=== PATIENT | male | born 1970 ===

== ENCOUNTER 2018-09-08 08:17 | Day surgery (SDC) | payer BC ==
[2018-09-08] VITALS (8 sets, daily range): BP systolic 99–108; BP diastolic 58–76
[~2018-09-08] VITALS: Ht 182.9 cm; Wt 99.8 kg
[~2018-09-08 08:17] MED LIST: LR 1000ml 1,000 ML IVLG SCH
[2018-09-08] MEDS ORDERED: ALLOPURINOL100 M1 ORAL (08:54)
[2018-09-08] MEDS ORDERED: Propofol 200mg/20ml IV ONE (10:00)
[2018-09-08] MEDS ORDERED: LR 1000ml ONE (10:00)
[2018-09-08] MEDS ORDERED: Lidocaine 1% MPF 10mg/ml 5ml ONE (10:00)
--- NOTE | 2018-09-08 10:12 | Short Stay Surgery H&P ---
History of Present Illness History of Present Illness Chief Complaint see H&P HPI Kris Muñoz is a 47 year old male who was admitted on for Rule Out Gg Fistula Patient History Allergies: Coded Allergies: No Known Allergies (Unverified , 09/08/18) Medication History Scheduled Allopurinol* (Allopurinol*), 100 MG ORAL DAILY, (Reported) Physical Exam Vital Signs Last Vital Signs Date Time Temp Pulse Resp B/P (MAP) Pulse Ox O2 Delivery O2 Flow Rate FiO2 09/08/18 08:52 Room Air 09/08/18 08:50 97.9 67 18 106/64 98 Plan Attestation Are the patient's medical conditions optimized for surgery? Enzo Fregoso MD Sep 08, 2018 10:12
--- NOTE | 2018-09-08 10:12 | Pre-Procedure Note/Attestation ---
Pre-Procedure Note/Attestation Complete Prior to Procedure Planned Procedure: not applicable Procedure Narrative: egd Indications for Procedure Pre-Operative Diagnosis: gerd Attestation I attest that I discussed the nature of the procedure; its benefits; risks and complications; and alternatives (and the risks and benefits of such alternatives ), prior to the procedure, with the patient (or the patient's legal construction representative). I attest that, if there was a reasonable possibility of needing a blood transfusion, the patient (or the patient's legal construction representative) was given the [facility] standardized written summary, pursuant to the [place] Blood Safety Act ([place] Health and Safety Code # 1645, as amended). I attest that I re-evaluated the patient just prior to the surgery and that there has been no change in the patient's H&P, except as documented below: Enzo Fregoso MD Sep 08, 2018 10:12
[2018-09-08] MEDS ORDERED: LR 1000ml 1,000 ML IVLG SCH (11:25)
--- NOTE | 2018-09-08 11:28 | Anethesia Preoperative Eval ---
Anesthesia Pre-op PMH/ROS General Date of Evaluation: Sep 08, 2018 Time of Evaluation: 09:45 Anesthesiologist: vilma ASA Score: ASA 2 Mallampati Score Class I : Soft palate, uvula, fauces, pillars visible Class II: Soft palate, uvula, fauces visible Class III: Soft palate, base of uvula visible Class IV: Only hard plate visible Mallampati Classification: Class II Surgeon: giovany Diagnosis: gerd Surgical Procedure: egd Anesthesia History: none Social History: smoking - nonsmoker Family History: no anesthesia problems Allergies: Coded Allergies: No Known Allergies (Unverified , 09/08/18) Medications: see eMAR Patient NPO?: Yes Past Medical History Musculoskeletal/Integumentary: Reports: other - gout PSxH Narrative: bariatric bypass Anesthesia Pre-op Phys. Exam Physician Exam Last Vital Signs Date Time Temp Pulse Resp B/P (MAP) Pulse Ox O2 Delivery O2 Flow Rate FiO2 09/08/18 10:55 98.0 78 20 106/73 97 Room Air 09/08/18 10:40 3 Constitutional: NAD Neurologic: CN 2-12 intact Cardiovascular: RRR Respiratory: CTA Gastrointestinal: S/NT/ND Airway Exam Mallampati Score: Class II MO: full Neck: flexible TMD: 2fb ROM: full Anesthesia Pre-op A/P Risk Assessment & Plan Assessment: asa2 Plan: mac Status Change Before Surgery: No Pre-Antibiotics Drug: Gaby Cornell MD Sep 08, 2018 11:28
[2018-09-08] MEDS ORDERED: Midazolam 2mg/2ml Inj IVP PRN (11:30)
[2018-09-08] MEDS ORDERED: DiphenhydrAMINE 50mg/ml Inj IVP PRN (11:30)
[2018-09-08] MEDS ORDERED: fentaNYL 100 mcg/2 mL IV PRN (11:30)
[2018-09-08] MEDS ORDERED: Atropine Inj 1mg/10ml Syr IV PRN (11:30)
--- NOTE | 2018-09-08 11:30 | 48 Hour Post Anesthesia Eval ---
Post Anesthesia Evaluation Procedure: egd w/bx Date of Evaluation: Sep 08, 2018 Time of Evaluation: 10:52 Blood Pressure Systolic: 105 0: 72 Pulse Rate: 77 Respiratory Rate: 18 Temperature (Fahrenheit): 98.4 O2 Sat by Pulse Oximetry: 100 Airway: patent Nausea: No Vomiting: No Pain Intensity: 0 Hydration Status: adequate Cardiopulmonary Status: stable Mental Status/LOC: patient returned to baseline Post-Anesthesia Complications: none Follow-up care needed: N/A Gaby Barnes MD Sep 08, 2018 11:30
--- NOTE | 2018-09-08 11:30 | Immediate Post-Op Evaluation ---
Immediate Post-Op Evalulation Immediate Post-Op Evalulation Procedure: egd w/bx Date of Evaluation: Sep 08, 2018 Time of Evaluation: 10:50 IV Fluids: 450ml lr Blood Products: none Estimated Blood Loss: neglgible Blood Pressure Systolic: 99 Blood Pressure Diastolic: 58 Pulse Rate: 77 Respiratory Rate: 18 O2 Sat by Pulse Oximetry: 100 Temperature (Fahrenheit): 98.4 Pain Score (1-10): 0 Nausea: No Vomiting: No Complications none Patient Status: awake, reacts, patent Hydration Status: adequate Drug: Gaby Cornell MD Sep 08, 2018 11:30
--- NOTE | 2018-09-08 16:15 | Procedure Note ---
DATE OF PROCEDURE: 09/08/2018 PROCEDURE: Upper gastrointestinal endoscopy as well as enteroscopy with biopsy. SURGEON: Enzo Fregoso M.D. ANESTHESIA: Please see the separate anesthesiologist notes for details. PRE-ENDOSCOPIC DIAGNOSIS: persistent gastroesophageal reflux disease in a gastric bypass patient. POST-ENDOSCOPIC DIAGNOSIS: 1. Status post Torsten-en-Y gastric bypass surgery as expected with pouch size approximately 5 to 6 cm. 2. No evidence of ulcers or fistulas were identified in this study. 3. There was a hiatal hernia at the midportion of the gastric pouch such that half the pouch was below the hernia and other half was above the hernia. 4. Status post random biopsies of the gastric pouch, lower esophagus and mid esophagus. DESCRIPTION OF PROCEDURE: The procedure, its risks, indications, alternatives, and possible complications including, but not limited to bleeding, infection, perforation were explained to the patient and informed consent was obtained. The diagnostic upper endoscope was then introduced into oropharynx and advanced to the jejunum. The endoscope was then gradually withdrawn and mucosa examined carefully. Examination of the upper gastrointestinal mucosa revealed the Torsten-en-Y gastric bypass anatomy and both the afferent blind limb and efferent limb were examined. Findings are as listed above. The endoscope was removed. The patient was sent to recovery in good condition. COMPLICATIONS: None. RECOMMENDATIONS: 1. Follow up biopsy results. 2. Check and treat Helicobacter pylori if positive. 3. Trial of Zantac 300 mg p.o. at bedtime. 4. Outpatient followup. Enzo Fregoso M.D. DR: Renea JOB#: [id number] CC: Enzo Fregoso M.D.; Fax#: [phone]
--- NOTE | 2018-09-09 11:09 | Endoscopy Procedure Note ---
Endoscopy Procedure Note General Indication for Procedure: MARCE Procedures Performed: EGD Operative Findings/Diagnosis: GILMA, ALEJANDRA Specimen: yes Pt Tolerated Procedure Well: Yes Estimated Blood Loss: minimal Anesthesia Anesthesiologist: See report Anesthesia: MAC Inserted Devices Implant(s) used?: No GI Core Measures 50 yrs or older w/o bx or poly: Not Applicable 10yrs. F/U recommended: Not Applicable If not recommended, why?: Enzo Fregoso MD Sep 09, 2018 11:09
--- NOTE | 2018-09-09 11:10 | Brief Operative Note ---
Immediate Post Operative Note Operative Note Chief Complaint: MARCE Pre-op Diagnosis: gerd Procedure: EGD Post-op Diagnosis: ALEJANDRA DILLARD Surgeon: giovany Specimen: yes Complications: none Condition: stable Fluids: recorded Implant(s) used?: No nEzo Fregoso MD Sep 09, 2018 11:10
== END 2018-09-08 11:30 | disposition home or self-care (01) ==
LOC: GAS 08:17
DX: K21.9 Gastro-esophageal reflux disease without esophagitis (principal); Z98.84 Bariatric surgery status; K44.9 Diaphragmatic hernia without obstruction or gangrene; Z79.899 Other long term (current) drug therapy; K29.50 Unspecified chronic gastritis without bleeding
CPT/HCPCS: 43239; J2704; 94003; 94150